=== PATIENT | female | born 1965 | race Caucasian/White ===

== ENCOUNTER → 2018-10-19 14:22 | Outpatient (CLI) | payer OTHER, SELFPAY ==
[2018-10-19 15:33] LABS: Add Manual Diff / Slide Review NO; Basophils Absolute Auto 100 /uL (0-100); Basophils Percent Auto 0.6 % (0-2); Eosinophils Absolute Auto 200 /uL (0-450); Eosinophils Percent Auto 2.5 % (2-4); Hematocrit 42.3 % (36-46); Hemoglobin 14.3 g/dL (12.0-16.0); Lymphocytes Absolute Auto 3000 /uL (1100-4500); Lymphocytes Percent Auto 33.7 % (25-40); Mean Corpuscular HGB Conc 33.8 % (30-36); Mean Corpuscular Hemoglobin 27.9 PG (26-34); Mean Corpuscular Volume 82.4 fL (80-100); Monocytes Absolute Auto 500 /uL (0-900); Monocytes Percent Auto 5.3 % (3-14); Neutrophils Absolute Auto 5200 /uL (1500-7000); Neutrophils Percent Auto 57.9 % (50-75); Platelet Count 299 X10^3/uL (150-400); Red Blood Cell Count 5.13 X10^6/uL (4.0-5.2); Red Cell Distribution Width 13.3 % (11.6-14.8)
[2018-10-19 15:41] LABS: Hemoglobin A1C% w Est Avg Glu 9.9 % (4.0-6.0)
[2018-10-19 15:45] LABS: Alanine Aminotransferase 22 IU/L (9-52); Albumin 4.3 g/dL (3.5-5.0); Albumin Globulin Ratio 1.5 (1.0-2.8); Alkaline Phosphatase 81 U/L (38-126); Aspartate Aminotransferase 18 IU/L (14-36); BUN Creatinine Ratio 17.1 (6-22); Bilirubin Total 0.4 mg/dL (0.2-1.3); Blood Urea Nitrogen 12 mg/dL (7-17); Calcium 9.1 mg/dL (8.4-10.2); Carbon Dioxide 27 mmol/L (22-32); Chloride 101 mmol/L (98-107); Estimated Glomerular Filt Rate > 60.0 mL/min (>60); Globulin 2.9 g/dL (1.7-4.1); Glucose 222 mg/dL (70-100); HEMOLYSIS < 15 (0-50); Potassium 3.7 mmol/L (3.4-5.1); Sodium 138 mmol/L (137-145); Total Protein 7.2 g/dL (6.3-8.2)
== END ==
PROVIDERS: PCP Internal Medicine; Visit Provider Physician Assistant
DX: Z01.818 Encounter for other preprocedural examination (principal); R73.9 Hyperglycemia, unspecified
CPT/HCPCS: 36415; 80053; 83036; 85025; 93005

== ENCOUNTER 2018-11-06 11:01 | Inpatient (IN) | payer OTHER, SELFPAY ==
[2018-10-26 13:56] VITALS: BMI 41.7
[2018-11-06] VITALS (15 sets, daily range): BP systolic 124–172; BP diastolic 66–92; PULSE 69–88; RESP 13–18; TEMP 35.8–36.7; O2SAT 93–98; BMI 41.7
--- NOTE | 2018-11-06 | DI.RAD.S_ITS ---
PROCEDURE: XR CERVICAL SPINE 2V OR 3V INDICATIONS: ACDF C4-5 C5-6 TECHNIQUE: 2 intraoperative fluoroscopic view(s) of the cervical spine were acquired. COMPARISON: None. FINDINGS: Endotracheal tube is in place. Disc spacer hardware is present at C4-5 and C5-6. No unexpected fractures. Bony alignment is grossly normal. IMPRESSION: Intraoperative fluoroscopy for anterior cervical disc spacer placement. Dictated by: She Otoole M.D. on 11/06/2018 at 16:07 Approved by: She Otoole M.D. on 11/06/2018 at 16:08
[2018-11-06] MEDS: LACTATED RINGERS 1,000 ML 42 ML IV ×2 (12:40→16:11)
--- NOTE | 2018-11-06 13:06 | PM.PREOP ---
Pre-operative Note Interval Note History & Physical reviewed/Exam performed by Physician: Yes Changes to H&P: No
--- NOTE | 2018-11-06 13:47 | PM.OP.1 ---
Operative Date/Time/Diagnoses Date of procedure: 11/06/18 Time of procedure: 15:24 Pre-op diagnosis: Cervical stenosis with myelopathy Post-op diagnosis: same Procedure & Clinicians Procedure: C4-5, C5-6 anterior cervical diskectomy and fusion with cages Iliac crest bone graft aspirate Use of microscope Same procedure as scheduled: Yes Indications: [age] year old female with intractable pain from myelopathy from stenosis. They had failed conservative management and requested operative intervention. Risks and benefits of surgery were discussed and appropriate consents were obtained. Surgeon: Jason Benson Expansion Joint Finisher: Cheyenne Merino Anesthesia Type: General Operative Notes Findings: None Closure Type: primary Specimen(s): none sent Prosthetic devices, grafts, tissues, transplants, or devices: Kash SORAYA-C Estimated Blood Loss (mL): 5 Blood products transfused: none Procedure in detail: Patient was brought to the operating room and intubated on the table. A time-out was performed. Preoperative antibiotics were given. The neck was prepped and draped in the standard sterile fashion. Using a skin fold, we made a 3 cm oblique incision on the left side. We used Bovie to go through the platysma and then did a standard anterolateral blunt dissection down to the precervical fascia. Fascia was nicked and elevated up. A marker was placed and x-ray was taken for localization. We then subperiosteally elevated up the longus colli muscles. Self-retaining retractors were placed. Magazine pins were placed. We then brought in the microscope. A scalpel used to perform an annulotomy. We then used a combination of pituitaries and curettes and Kerrison to perform a complete anterior diskectomy at C4-5. We used the bur to take down the posterior osteophytes. We took down the PLL and used Kerrison to remove any posterior disc material and osteophytes. At the end we could from the nerve hook cephalad caudally and out the foramen and everything was opened. A small stab incision was made over the left anterior iliac crest. A Jamshidi needle was advanced down the pedicle and 2 mL of bone marrow was aspirated. We then used the trials. We then packed a 6mm anatomic SORAYA-C cage with Osteocell bone graft and the iliac crest harvest. The cage was placed under fluoroscopic guidance. We then placed our two locking plates and took x-rays. We then moved our retractors down to C5-6. Again, complete diskectomy was performed with scalpel, pituitaries, curets, Kerrisons. We took down the PLL and removed the posterior osteophytes. The nerve hook was swept cephalad caudally and out the neural foramen to make sure everything was open. We then trialed and placed another 7mm anatomic SORAYA-C cage packed with bone graft. We placed our 2 locking plates through the cage. The self-retaining retractors and Magazine pins were removed and final x-rays taken. The wound was irrigated. There was no bleeding. The carotid was beating nicely. The platysma was closed. The superficial was closed. The skin was closed. A sterile dressing was placed. They were then extubated and brought to recovery room with no complications. Complications: none Condition: stable Disposition: PACU Plan for aftercare: Overnight admission. Up with physical therapy.
[2018-11-06] MEDS: CEFAZOLIN 2 GM/100 ML FROZ.PIGGY IV ×2 (14:03→21:50)
--- NOTE | 2018-11-06 14:33 | SUR.OPER ---
Supine on padded OR bed, head on pillow, towel roll between shoulder blades, bilateral arms padded and tucked at side, legs uncrossed, safety belt at thigh, tape over blanket over lower legs .
[2018-11-06] MEDS: BUPIVACAINE 0.25% W/ EPI 30 ML VIAL 60 ML INJ (14:50)
[2018-11-06] MEDS: THROMBIN (BOVINE) 5,000 UNIT VIAL 5000 UNIT TOP (14:50)
[2018-11-06] MEDS: SODIUM CHLORIDE 0.9% 1,000 ML, GENTAMICIN 80 MG IRR (14:53)
[2018-11-06] MEDS: fentaNYL 100 MCG/2 ML INJ 50 MCG IV (16:09)
[2018-11-06] MEDS: ONDANSETRON 4 MG/2 ML INJ IV ×2 (17:17→20:58)
--- NOTE | 2018-11-06 17:35 | SUR.PHASEI ---
Pt transferred to room 225 via bed with all belongings. Last vital signs stable. Report given to ROGER Perez prior to transfer. Pt c/o nausea just before being transferred; 4 mg IV zofran given with pt reporting some improvement in nausea. ROGER Perez at bedside upon arrival to [id number]; assessed pt and pt's dressings together. Ana to assume care of pt at this time.
[2018-11-06] MEDS: LACTATED RINGERS 1,000 ML 125 ML IV (17:57)
[2018-11-06] MEDS: FLUCONAZOLE 200 MG/100 ML PIGGYBACK 100 MG IV (18:04)
[2018-11-06] MEDS: METOCLOPRAMIDE 10 MG/2 ML INJ IV (18:05)
[2018-11-06] MEDS: BENZOCAINE/MENTHOL 1 LOZ PKT 1 EACH PO ×2 (18:20→22:37)
[2018-11-06] MEDS: HYDROMORPHONE 1 MG INJ 0.5 MG IV (18:27)
--- NOTE | 2018-11-06 18:32 | PC.NURSE ---
Addendum entered by Ana Mccauley R.N. 11/06/18 23:08: 250 cc's emesis this evening shift. Reglan, zofran and po vistaril given. Encouraged slow sips/chips only. Up to commode x 2 to void. Original Note: Addendum entered by Ana Mccauley R.N. 11/06/18 20:19: Up to bedside commode to void with one assist. Offered pt oral intake and pt declines. States does not feeling like eating. Oral fluids are available at bedside. Original Note: Addendum entered by Ana Mccauley R.N. 11/06/18 19:21: Pt medicate with throat lozenge for c/o sore throat. Reports nausea improved. C/o incisional pain to neck 03/06. Administered iv dilaudid. Currently resting quietly in bed with head of bed elevated. Ice to site. Original Note: Pt to room 225 from PACU drowsy, but rousable. Diaphoretic and c/o nausea. Has aromatherapy packet present per PACU and was given cool washcloth and encouraged slow, deep breathing. Nausea resolves and reglan administered as pt's bowel tones are absent. Soft collar in place. Graft site to left lower abdomen with pinpoint drainage and gauze/tegaderm to anterior neck dry and intact. Pt able to move all extremities independently. BL calf scd's in place. Pt's daughter is present, attentive and involved in pt's care.
[2018-11-06] MEDS: DOCUSATE 100 MG CAPSULE PO (20:43)
[2018-11-06] MEDS: SENNOSIDES 8.6 MG TABLET 17.2 MG PO (20:44)
[2018-11-06] MEDS: GABAPENTIN 400 MG CAPSULE PO (20:44)
[2018-11-06] MEDS: NYSTATIN POWDER 30 GM 1 APPLIC TOP (20:49)
[2018-11-06] MEDS: INSULIN NPH 100 UNIT/ML VIAL 38 UNIT SUBCUT (20:53)
[2018-11-06] MEDS: hydrOXYzine pamoate 25 MG CAPSULE PO (22:36)
[2018-11-07] VITALS: BP 143/64; PULSE 89; RESP 18; TEMP 35.7; O2SAT 98
[2018-11-07] MEDS: HYDROMORPHONE 1 MG INJ 0.5 MG IV (02:03)
[2018-11-07] MEDS: METOCLOPRAMIDE 10 MG/2 ML INJ IV (02:08)
[2018-11-07] MEDS: BENZOCAINE/MENTHOL 1 LOZ PKT 1 EACH PO (02:08)
[2018-11-07] MEDS: LACTATED RINGERS 1,000 ML 125 ML IV (02:20)
[2018-11-07 03:58] VITALS: BP 139/62; PULSE 96; RESP 18; TEMP 36.2; O2SAT 95
[2018-11-07] MEDS: CEFAZOLIN 2 GM/100 ML FROZ.PIGGY IV (05:37)
--- NOTE | 2018-11-07 06:32 | PC.NURSE ---
NOC Shift: POD 1 anterior cervical fusion C4-5, C5-6. Pt. AAOx3, neurologically intact. States she continues to have tingling, numbness in left hand, fingertips however feels it feels less since surgery. Had post op difficulty w/ nausea and vomiting. Has had no N/V through NOC shift. Was given Diluadid IV once for incisional pain along w/Reglan for nausea prevention. Pt states she cannot take Hydrocodone gives her severe headaches, nausea. Needs to be addressed w/surgeon this AM. Anterior cervical dsg CDI. Soft collar removed while in bed for pt. comfort. Using ice pack to surgical site for pain. Home CPAP at bedside, however w/the nausea, vomiting pt not using tonight remains on 2L NC cont. oximetry stable. VSS. OOB to commode prn. IVF's left on this AM because pt. isn't taking in enough po fluids.
--- NOTE | 2018-11-07 07:56 | PM.PNPO.1 ---
Subjective Date Patient Seen: 11/07/18 Time Patient Seen: 07:56 Interval history: She was very nauseated yesterday but now that the nausea has passed she is doing much better. Arms are tingling but overall feel much better. She did not take any [place] as she remembers being nauseated and vomiting with Vicodin in the past and requests tramadol. Exam Vital Signs (past 8 hours): - 11/07/18 00:00 11/07/18 03:58 Temperature 96.2 F L 97.2 F L Pulse Rate 89 96 H Respiratory Rate 18 18 Blood Pressure 143/64 H 139/62 Pulse Oximetry 98 95 Oxygen Delivery Method Nasal Cannula,CPAP Oxygen Flow Rate 1 Const Orientation: alert and oriented x3 Back/Spine/Pelvis Other: CDI. 5/5 motor both upper extremities except for 4/5 bilateral drupal php developer. Assessment & Plan Post-op Postoperative Procedures Operation Date: 11/06/18 13:15 Actual Procedures Side Surgeon p C4-5,C5-6 ACDF w/fusion & bone graft Jason Benson MD she is doing well. Will change her over to tramadol. Plan for discharge after therapy this morning. Quality VTE Deep Vein Thrombosis/Pulmonary Embolism Present on Admission: No
[2018-11-07 08:00] VITALS: BP 139/69; PULSE 90; RESP 18; TEMP 36.6; O2SAT 92
[2018-11-07] MEDS: NYSTATIN POWDER 30 GM 1 APPLIC TOP (08:26)
[2018-11-07] MEDS: TRAMADOL 50 MG TABLET PO (08:26)
[2018-11-07] MEDS: CELECOXIB 200 MG CAPSULE PO (08:27)
[2018-11-07] MEDS: INSULIN NPH 100 UNIT/ML VIAL 38 UNIT SUBCUT (08:27)
[2018-11-07] MEDS: GABAPENTIN 400 MG CAPSULE PO (08:27)
[2018-11-07] MEDS: DOCUSATE 100 MG CAPSULE PO (08:27)
[2018-11-07] MEDS: PANTOPRAZOLE 20 MG TABLET PO (08:28)
[2018-11-07] MEDS: INSULIN ASPART 100 UNIT/ML INSULN PEN SUBCUT ×2 (08:36→12:29)
--- NOTE | 2018-11-07 09:20 | PT.IIE ---
Current Diagnoses Spinal stenosis, cervical region (11/06/18) Surgery Performed Operation Date: 11/06/18 13:15 Actual Procedures p C4-5,C5-6 ACDF w/fusion & bone graft - Jason Benson MD Surgical History (Last Updated 10/26/18 @ 14:18 by Olga Joyner, RN) History of colonoscopy (Acute) Hx of tonsillectomy (Acute) Medical History (Last Updated 10/26/18 @ 14:23 by Olga Joyner RN) Back pain (Acute) Bronchitis (Acute) Eczema (Acute) Epilepsy (Acute) Former smoker (Acute) GERD (gastroesophageal reflux disease) (Acute) H/O: hysterectomy (Acute ~2012) Hearing impaired (Acute) IBS (irritable bowel syndrome) (Acute) Neck pain (Acute) Numbness and tingling (Acute) CHRISTI on CPAP (Acute) Rash (Acute) Physical Therapy Inpatient Evaluation/Re-Eval M1 PT/OT-IP Prior Functional Status Start: 11/07/18 09:45 Freq: NEEDED Status: Active Protocol: Document 11/07/18 09:20 [facility] (Rec: 11/07/18 09:58 [facility] [id number]) Medical Review Prior Functional Status Medical History Reviewed Yes Mobility and Gait mod. indep. with occasional use of SPC Activities of Daily Living and IADL's indep. ADLs Social History Household Members children Living Arrangements Apartment/Condo Number of Floors (Floors) One Floor Number of Stairs To Enter/Railing? 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 She underwent an anterior cervical fusion C4-5, C5-6 on 11/06/18. M2 PT-IP Current Condition Start: 11/07/18 09:45 Freq: NEEDED Status: Active Protocol: Document 11/07/18 09:20 [facility] (Rec: 11/07/18 09:58 [facility] [id number]) Physical Therapy Current Condition Current Condition Evaluation Date 11/07/18 Treatment Diagnosis C4-5, C5-6 fusion 11/06/18, impaired mobility Precautions Cervical Spine Precautions Soft Collar for Comfort Log Roll M3 PT-IP Subjective Start: 11/07/18 09:45 Freq: NEEDED Status: Active Protocol: Document 11/07/18 09:20 [facility] (Rec: 11/07/18 09:58 [facility] [id number]) Subjective Physical Therapy Visit Type Type Initial Evaluation Visit Start Time 09:20 Visit Stop Time 09:40 Total Visit Minutes 20 Number of ATMOSPHERIC PHYSICIST Visits 0 Physical Therapy Visit Comments Patient Comments Pt states she is doing a lot better this morning. Patient Goals to go home today. Therapy Pain Assessment Location Neck Intensity 3 Scale Used Numeric (1 - 10) M4 PT-IP Mobility and Gait Start: 11/07/18 09:45 Freq: NEEDED Status: Active Protocol: Document 11/07/18 09:20 [facility] (Rec: 11/07/18 09:58 [facility] [id number]) PT-Transfer Assessment Sit to and From Stand Sit to and from Stand Independent Equipment Transfer Assistive Device None Transfers Transfer Destination Chair Wheelchair Transfer Ability Level of Assist Independent Gait Assessment Gait Gait Assistance Required: Independent Distance (Feet) 300 Assistive Devices Assistive Device Straight Cane Gait Deviations General Gait Pattern Decreased Feet Clearance Factors Limiting Gait Function Factors Limiting Gait Function Decreased Activity Tolerance Stair Climbing Assessment Evaluation Level of Assist On Stairs Independent Devices Stair Climbing Assistive Devices Left Railing Right Railing Technique/Endurance Stair Climbing Direction Ascend and Descend Stair Climbing Technique Step to Step Number of Steps Climbed 3 Query Text: Stair Climbing Set # Repetitions (reps) 3 PT-Balance Assessment Sitting Balance and Reactions Static Sitting Balance Ability Good Dynamic Sitting Balance Ability Good Standing Balance and Reactions Static Standing Balance Ability Good Dynamic Standing Balance Ability Good Device Used SPC M5 PT-IP Objective Assessments Start: 11/07/18 09:45 Freq: NEEDED Status: Active Protocol: Document 11/07/18 09:20 [facility] (Rec: 11/07/18 09:58 [facility] [id number]) Orientation Orientation/Cognition Level of Alertness Alert Gross Range of Motion Lower Extremity ROM Assessment Within Functional Limits Strength Lower Extremity Strength Assessment Within Functional Limits Coordination Assessment Gross Coordination Gross Coordination WNL Sensation Assessment Comments Sensation Comments pt admits to bilateral UE numbness/tingling Muscle Tone Muscle Tone WNL Yes M6 PT-IP Treatment Start: 11/07/18 09:45 Freq: NEEDED Status: Active Protocol: Document 11/07/18 09:20 [facility] (Rec: 11/07/18 09:58 [facility] [id number]) Physical Therapy Treatment Education Education Provided Precautions Safety M7 PT-IP Assessment and Plan Start: 11/07/18 09:45 Freq: NEEDED Status: Active Protocol: Document 11/07/18 09:20 [facility] (Rec: 11/07/18 09:58 [facility] [id number]) PT Summary Assessment and Plan Potential Rehabilitation Potential Good Status of Condition at Evaluation Stable Summary Impairments Pain ROM Activity Tolerance Progress Towards Goals Safe For Discharge Assessment Summary POD #1. Pt able to manage stairs safely with use of B rails, and able to ambulate 300 ft with use of a SPC independently. Pt with no further acute PT needs at this time. She is safe to return home when medically stable. Frequency of Treatment Frequency Of Treatment Discharge Recommendations To Nursing Amount of Assist Needed Standby Assistance Discharge Recommendations PT Discharge Recommendations Home with Assistance
--- NOTE | 2018-11-07 10:29 | CM.DANOTE ---
DCP: Case received, EMR reviewed and met with patient. Introduced self and role. DCP template completed with information currently available. Patient is a 53 year old female who admitted yesterday morning to the care of the surgical team. PCP: Dr. Guzman. Payer: confirmed: [facility]. Patient came to hospital for surgical procedure. She had C4-5, C5-6 Anterior Cervical Diskectomy. Patient has had history of intractable pain secondary to stenosis. Met with patient in her room. Daughter, Janeen, was sleeping in the room. Patient stated that she uses a cane at home, and lives with her daughtger. She stated, she has good support at home. P: Patient may be discharged home today, but will work with physical therapy first. Nichole Espino RN/Nursing Care Attendant
--- NOTE | 2018-11-07 11:01 | OT.IP.EVAL ---
Current Diagnoses Spinal stenosis, cervical region (11/06/18) Surgery Performed Operation Date: 11/06/18 13:15 Actual Procedures p C4-5,C5-6 ACDF w/fusion & bone graft - Jason Benson MD Past Medical History (Last Updated 10/26/18 @ 14:23 by Olga Joyner, RN) Back pain (Acute) Bronchitis (Acute) Eczema (Acute) Epilepsy (Acute) Former smoker (Acute) GERD (gastroesophageal reflux disease) (Acute) H/O: hysterectomy (Acute ~2011) Hearing impaired (Acute) IBS (irritable bowel syndrome) (Acute) Neck pain (Acute) Numbness and tingling (Acute) CHRISTI on CPAP (Acute) Rash (Acute) Surgical History (Last Updated 10/26/18 @ 14:18 by Olga Joyner RN) History of colonoscopy (Acute) Hx of tonsillectomy (Acute) Occupational Therapy Inpatient Evaluation/Re-Eval M1 PT/OT-IP Prior Functional Status Start: 11/07/18 09:45 Freq: NEEDED Status: Active Protocol: Document 11/07/18 09:20 [facility] (Rec: 11/07/18 09:58 [facility] [id number]) Medical Review Prior Functional Status Medical History Reviewed Yes Mobility and Gait mod. indep. with occasional use of SPC Activities of Daily Living and IADL's indep. ADLs Social History Household Members children Living Arrangements Apartment/Condo Number of Floors (Floors) One Floor Number of Stairs To Enter/Railing? 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 She underwent an anterior cervical fusion C4-5, C5-6 on 11/06/18. M1 PT/OT-IP Prior Functional Status Start: 11/07/18 10:48 Freq: NEEDED Status: Active Protocol: Document 11/07/18 10:48 [facility] (Rec: 11/07/18 11:01 [facility] [id number]) Medical Review Prior Functional Status Medical History Reviewed Yes Diet/Fluid Consistency Regular Thin Liquids Communication Independent Mobility and Gait mod. indep. with occasional use of SPC Activities of Daily Living and IADL's indep. ADLs Social History Household Members children Living Arrangements Apartment/Condo Number of Floors (Floors) One Floor Number of Stairs To Enter/Railing? 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 She underwent an anterior cervical fusion C4-5, C5-6 on 11/06/18. M2 OT-IP Current Condition Start: 11/07/18 10:48 Freq: Status: Active Protocol: Document 11/07/18 10:48 [facility] (Rec: 11/07/18 11:01 [facility] [id number]) Occupational Therapy Current Condition Current Condition Evaluation Date 11/07/18 Treatment Diagnosis cervical stenosis Diagnosis Onset Date 11/06/18 Post Operative Precautions Cervical Spine Precautions Soft Collar for Comfort Soft Collar at all Times No Heavy Lifting Log Roll M3 OT- IP Subjective and Pain Start: 11/07/18 10:48 Freq: Status: Active Protocol: Document 11/07/18 10:48 [facility] (Rec: 11/07/18 11:01 [facility] [id number]) OT- Subjective Occupational Therapy Visit Type Type Initial Evaluation Visit Start Time 08:45 Visit Stop Time 09:28 Total Visit Minutes 43 Occupational Therapy Visit Comments Patient Comments Pt wanting to shower prior to going home. OT Pain Assessment Pain When Pain Assessed At Rest Pain Present Pain Present Denied Pain M4 OT- IP ADL's Start: 11/07/18 10:48 Freq: Status: Active Protocol: Document 11/07/18 10:48 [facility] (Rec: 11/07/18 11:01 [facility] [id number]) OT [id number] Comments OT Self-Feeding Comments Vc to chew food longer and alternate between solids and liquids. In addition to try to eat softer food initially. OT ADL-Grooming General Evaluation Grooming Ability Standby Assistance Comments OT Grooming Comments Initial VC to bryanna/doff soft collar and afterwards ADA with all grooming needs. OT ADL-Dressing General Eval Upper Body Dressing Ability Independent Lower Body Dressing Ability Moderate Assistance Comments OT Dressing Comments VC to sit sit down to bryanna brief and shorts and needing assist for socks. Pt issued LB AED. OT ADL-Toileting General Evaluation Toileting Ability Independent OT ADL-Bathing Bathing Type Bathing Type Shower General Evaluation Bathing Ability Minimal Assistance Areas Needing Assistance Wash/Dry Back Comments OT Bathing Comments Pt able to stand for showering and use of grab bats occasionally. Pt has a tub/ shower and to have assist to step into tub . Py may benefit from shower chair and especially HHSP. Went over information with pt for soft collar management and ADl needs. M5 OT- IP IADL's Start: 11/07/18 10:48 Freq: Status: Active Protocol: Document 11/07/18 10:48 [facility] (Rec: 11/07/18 11:01 [facility] [id number]) OT-Instrumental Activities of Daily Living Home Safety Awareness Awareness of Need for Assistance at Home Good Awareness Home Safety Comments Pt's daughter to assist with all IADL needs and ADL's as needed. M6 OT- IP Functional Cognition Start: 11/07/18 10:48 Freq: Status: Active Protocol: Document 11/07/18 10:48 [facility] (Rec: 11/07/18 11:01 [facility] [id number]) Cognitive Factors Limiting Selfcare Function Cognitive Ability Level of Alertness Alert Patient Orientation Name Age Birthday Month Date Year Day of Week Place Situation Attention Span Ability Capable of Focused Attention Capable of Sustained Attention Ability to Follow Commands Able to Follow Multi-Step Commands Memory Description No Deficits Noted Safety Awareness Underestimates Need for Assistance Problem Solving Ability No deficits Noted Cognitive Comments Cognitive Assessment Comments Mainly vc to slow down and be careful not to twist her neck while moving and especially while trying to reach for objects. OT- Vision and Hearing OT- Hearing Assessment OT- Hearing Assessment Use of Hearing Aids OT- Vision Assessment Visual Acuity Glasses All The Time M7 OT- IP Mobility and Balance Start: 11/07/18 10:48 Freq: Status: Active Protocol: Document 11/07/18 10:48 [facility] (Rec: 11/07/18 11:01 [facility] [id number]) OT- Bed Mobility Assessment Rolling Type of Rolling Log Rolling Supine to Sit Supine to Sit Assist Standby Assistance Scooting Scooting to Edge of Bed Standby Assistance OT-Transfer Assessment Sit to and From Stand Sit to and from Stand Independent Transfers Transfer Ability Independent Standby Assistance Technique Transfer Destination Chair Shower Stall Toilet Comments Mobility Comments Pt has a hi bed and use of step stool with rail to get into bed at home, information passed to PT. Pt mainly independent for level surfaces and SBA when stepping into the shower, pt will need CGA/ KAREN to step over tub at home. OT- Balance Assessment Sitting Balance and Reactions Static Sitting Balance Ability Normal Dynamic Sitting Balance Ability Normal Standing Balance and Reactions Static Standing Balance Ability Normal Dynamic Standing Balance Ability Good M8 OT- IP Objective Assessments Start: 11/07/18 10:48 Freq: Status: Active Protocol: Document 11/07/18 10:48 [facility] (Rec: 11/07/18 11:01 [facility] [id number]) OT Gross Range of Motion Upper Extremity Range of Motion Assessment Within Functional Limits OT Strength Upper Extremity Strength Assessment Within Functional Limits M9 OT- IP Assessment and Plan Start: 11/07/18 10:48 Freq: Status: Active Protocol: Document 11/07/18 10:48 [facility] (Rec: 11/07/18 11:01 [facility] [id number]) OT Summary Assessment and Plan Potential Rehabilitation Potential Excellent Analytic Complexity at Evaluation Low Summary OT Impairments Functional Cognition Functional Mobility Progress Towards Goals Progressing Toward Goals Assessment Summary Pt low complexity and doing well, main barrier is 20 steps at home and needs vc to slow down. Pt's daughter lives with her and to assist for all needs. Pt to go home today. Goals Patient/Caregiver Education Goal Demonstrate Post-Op Precautions Caregiver Independent Assisting Patient Days to Meet Goals 1 Frequency of Treatment Frequency Of Treatment Once a Day Treatment Plan OT Treatment Plan Patient/Family Education Discharge Planning Discharge Recommendations OT Discharge Recommendations Home with Assistance Home Equipment Needs HHSP, shower chair
== END 2018-11-07 13:00 | disposition home or self-care (01) | DRG 472 ==
PROVIDERS: Admitting Provider Orthopaedic Surgery; PCP Internal Medicine; Visit Provider Orthopaedic Surgery
PROC: 0RG20A0 Fusion of 2 or more Cervical Vertebral Joints with Interbody Fusion Device, Anterior Approach, Anterior Column, Open Approach (ICD-10-PCS; principal; 2018-11-06 13:15)
DX: M48.02 Spinal stenosis, cervical region (principal); Z68.41 Body mass index [BMI] 40.0-44.9, adult; G99.2 Myelopathy in diseases classified elsewhere; G47.33 Obstructive sleep apnea (adult) (pediatric); E10.9 Type 1 diabetes mellitus without complications; E66.01 Morbid (severe) obesity due to excess calories; Z87.891 Personal history of nicotine dependence; Z79.4 Long term (current) use of insulin
CPT/HCPCS: 72040; 76000; 82962; 97161; 97165; 97535; C1776; J0330; J0690; J1100; J1170; J1450; J2405; J2704; J2765; J3010

== ENCOUNTER 2019-06-27 13:49 | Emergency (ER) | payer OTHER, SELFPAY ==
[2018-11-06 17:46] VITALS: BMI 41.7
[2019-06-27 13:53] VITALS: BP 155/68; PULSE 80; RESP 20; TEMP 36.7; O2SAT 97
--- NOTE | 2019-06-27 14:38 | ED.NAVMDI ---
HPI - Nausea/Vomiting/Diarrhea <ANTHONY Light - Last Filed: 06/27/19 19:39> General Chief complaint: Nausea/Vomiting/Diarrhea Stated complaint: Heartburn,headache,nausea Time Seen by Provider: 06/27/19 14:19 Source: patient Mode of arrival: Ambulatory Limitations: no limitations History of Present Illness HPI Narrative: The patient is a 54-year-old female nonsmoker with history of type 2 diabetes and GERD who presents with a chief complaint of epigastric pain and nausea. She states she generally does not feel well. Of note the patient has run out of insulin test strips and has not been checking her blood sugars. She states she feels like she has really bad heartburn, got concerned today when she started having arm pain and nausea. She takes daily omeprazole, but has not taken anything to feel better. She denies any lightheadedness, dizziness, shortness of breath, palpitations or swelling of her extremities. She denies any fevers muscle aches or chills. She does not remember the last time she checked her blood sugar. Related Data Home Medications Medication Instructions Recorded Confirmed Humulin N NPH U-100 Insulin 38 unit SUBCUT BID 10/26/18 11/06/18 acetaminophen [Acetaminophen Extra 1,000 mg PO Q6H PRN 10/26/18 11/06/18 Strength] gabapentin 400 mg PO TID 10/26/18 11/06/18 nystatin 1 applic TOPICAL BID 10/26/18 10/26/18 omeprazole 20 mg PO DAILY 10/26/18 11/06/18 Previous Rx's Medication Instructions Recorded celecoxib [Celebrex] 200 mg PO BID PRN #60 cap 11/07/18 docusate sodium 100 mg PO BID PRN #30 cap 11/07/18 hydroxyzine pamoate 25 mg PO Q4HR PRN #20 cap 11/07/18 tramadol 50 mg PO Q4HR PRN #30 tab 11/07/18 ondansetron 4 mg PO Q6H PRN #20 tab 06/27/19 sucralfate [Carafate] 10 ml PO QACHS 10 Days #400 ml 06/27/19 Allergies Allergy/AdvReac Type Severity Reaction Status Date / Time No Known Drug Allergies Allergy Verified 11/06/18 12:24 Review of Systems <ANTHONY Light - Last Filed: 06/27/19 19:39> Review of Systems Narrative: GENERAL: Denies chills, fatigue, malaise, fever, sweats. HEENT: Denies sinus pain, ear pain, sore throat, difficulty swallowing, dizziness. RESPIRATORY: Denies dyspnea, cough, wheezing, hemoptysis, sputum. CARDIOVASCULAR: See HPI GASTROINTESTINAL: See HPI : Denies dysuria, frequency, incontinence, hematuria, urinary retention. MUSCULOSKELETAL: denies weakness, joint pain, or bony pain SKIN: Denies rash, skin lesions, or other NEUROLOGIC: Denies weakness, headache, numbness, change in speech, confusion, seizures, incoordination. PSYCHIATRIC: No concerning psychosocial issues. 12 point review of systems is negative except for those stated above Patient History <ANTHONY Light - Last Filed: 06/27/19 19:39> Medical History (Updated 06/27/19 @ 19:33 by ANTHONY Light) Back pain (Acute) Bronchitis (Acute) Eczema (Acute) Epilepsy (Acute) Former smoker (Acute) GERD (gastroesophageal reflux disease) (Acute) Hearing impaired (Acute) IBS (irritable bowel syndrome) (Acute) Neck pain (Acute) Numbness and tingling (Acute) CHRISTI on CPAP (Acute) Rash (Acute) Surgical History (Updated 10/26/18 @ 14:18 by Olga Joyner RN) H/O: hysterectomy (Acute ~2011) History of colonoscopy (Acute) Hx of tonsillectomy (Acute) Social History household members: children Smoking Status: Former smoker alcohol intake: current alcohol intake frequency: holidays/special occasions only Substance Use Type: does not use Exam <ANTHONY Light - Last Filed: 06/27/19 19:39> Narrative Exam Narrative: GENERAL: This is a well-nourished, well-developed patient, no acute distress HEAD: Atraumatic. Normocephalic. No temporal or scalp tenderness. EYES: Pupils equal round and reactive. Extraocular motions intact. No scleral icterus. No injection or drainage. ENT: Nose without bleeding, purulent drainage or septal hematoma. Throat without erythema, tonsillar hypertrophy or exudate. Uvula midline. Airway patent. NECK: Trachea midline. No JVD or lymphadenopathy. Supple, nontender, no meningeal signs. CARDIOVASCULAR: Regular rate and rhythm RESPIRATORY: Clear to auscultation. Breath sounds equal bilaterally. No wheezes, rales, or rhonchi. No cough. No increased respiratory effort. No accessory muscle use. GASTROINTESTINAL: Abdomen soft, non-tender, nondistended. No hepato-splenomegaly, or palpable masses. No guarding. Negative Newell sign. No pain over McBurney's point. EXTREMITIES: No clubbing, cyanosis, or edema. No joint tenderness, effusion, or edema noted. BACK: Nontender without deformity or crepitance. No flank tenderness. NEURO: AOx3. SKIN: No rash or erythema visible skin Initial Vital Signs Initial Vital Signs: Vital Signs Temperature 98.1 F 06/27/19 13:53 Pulse Rate 80 06/27/19 13:53 Respiratory Rate 20 06/27/19 13:53 Blood Pressure 155/68 H 06/27/19 13:53 Pulse Oximetry 97 06/27/19 13:53 <Susana Jordan DO - Last Filed: 07/05/19 09:06> Initial Vital Signs Initial Vital Signs: Vital Signs Temperature 98.1 F 06/27/19 13:53 Pulse Rate 80 06/27/19 13:53 Respiratory Rate 20 06/27/19 13:53 Blood Pressure 155/68 H 06/27/19 13:53 Pulse Oximetry 97 06/27/19 13:53 Scores <ANTHONY Light - Last Filed: 06/27/19 19:39> GCS [place] coma scale eye opening: Spontaneous [place] coma scale verbal response: Orientated [place] coma scale motor response: Obey commands [place] coma scale total score: 15 HEART Score Heart Score history: Slightly Suspicious Heart Score EKG: Normal Heart Score Age: 45-64 years old Heart Score risk factors: 1-2 risk factors Heart Score troponin: < or = to normal limit Heart Score Total: 2 Course <ANTHONY Light - Last Filed: 06/27/19 19:39> Orders Ordered: Discontinued Medications Al Hydrox/Mg Hydrox/Simethicone 20 ml/ Lidocaine HCl 15 ml 0 ml PO NOW ONE Stop: 06/27/19 17:08 Last Admin: 06/27/19 17:25 Dose: 35 ml Documented by: SALBADOR Sodium Chloride (Normal Saline 0.9%) 1,000 mls @ 1,000 mls/hr IV BOLUS ONE Stop: 06/27/19 15:32 Last Infusion: 06/27/19 16:20 Dose: 0 mls/hr Documented by: Admin: 06/27/19 15:06 Dose: 1,000 mls/hr Documented by: SALBADOR Ketorolac Tromethamine (Toradol) 30 mg IV NOW ONE Stop: 06/27/19 17:04 Last Admin: 06/27/19 17:26 Dose: 30 mg Documented by: SALBADOR Ondansetron HCl (Zofran) 4 mg IV NOW ONE Stop: 06/27/19 14:33 Last Admin: 06/27/19 15:06 Dose: 4 mg Documented by: SALBADOR Ondansetron HCl (Zofran Odt Prepack) 1 bottle MISC SEEINSTR ONE Stop: 06/27/19 19:16 Last Admin: 06/27/19 19:41 Dose: 1 bottle Documented by: NOHELIA Pantoprazole Sodium (Protonix) 40 mg IV NOW ONE Stop: 06/27/19 14:33 Last Admin: 06/27/19 15:06 Dose: 40 mg Documented by: SALBADOR Sucralfate (Carafate) 1 gm PO NOW ONE Stop: 06/27/19 19:16 Last Admin: 06/27/19 19:40 Dose: 1 gm Documented by: NOHELIA Vital Signs Vital signs: Vital Signs - 8 hr 06/27/19 13:53 06/27/19 16:00 06/27/19 16:13 Temperature 98.1 F Pulse Rate 80 79 77 Respiratory Rate 20 16 Blood Pressure 155/68 H Blood Pressure [Left Arm] 148/63 H Blood Pressure [Right Arm] 148/63 H Pulse Oximetry 97 98 98 06/27/19 17:12 06/27/19 18:00 Temperature Pulse Rate 84 76 Respiratory Rate 16 16 Blood Pressure Blood Pressure [Left Arm] Blood Pressure [Right Arm] 134/59 L 141/67 H Pulse Oximetry 98 100 <Susana Jordan DO - Last Filed: 07/05/19 09:06> Orders Ordered: Discontinued Medications Al Hydrox/Mg Hydrox/Simethicone 20 ml/ Lidocaine HCl 15 ml 0 ml PO NOW ONE Stop: 06/27/19 17:08 Last Admin: 06/27/19 17:25 Dose: 35 ml Documented by: SALBADOR Sodium Chloride (Normal Saline 0.9%) 1,000 mls @ 1,000 mls/hr IV BOLUS ONE Stop: 06/27/19 15:32 Last Infusion: 06/27/19 16:20 Dose: 0 mls/hr Documented by: Admin: 06/27/19 15:06 Dose: 1,000 mls/hr Documented by: SALBADOR Ketorolac Tromethamine (Toradol) 30 mg IV NOW ONE Stop: 06/27/19 17:04 Last Admin: 06/27/19 17:26 Dose: 30 mg Documented by: SALBADOR Ondansetron HCl (Zofran) 4 mg IV NOW ONE Stop: 06/27/19 14:33 Last Admin: 06/27/19 15:06 Dose: 4 mg Documented by: SALBADOR Ondansetron HCl (Zofran Odt Prepack) 1 bottle MIS SEEINSTR ONE Stop: 06/27/19 19:16 Last Admin: 06/27/19 19:41 Dose: 1 bottle Documented by: NOHELIA Pantoprazole Sodium (Protonix) 40 mg IV NOW ONE Stop: 06/27/19 14:33 Last Admin: 06/27/19 15:06 Dose: 40 mg Documented by: SALBADOR Sucralfate (Carafate) 1 gm PO NOW ONE Stop: 06/27/19 19:16 Last Admin: 06/27/19 19:40 Dose: 1 gm Documented by: NOHELIA Vital Signs Vital signs: Vital Signs - 8 hr 06/27/19 13:53 06/27/19 16:00 06/27/19 16:13 Temperature 98.1 F Pulse Rate 80 79 77 Respiratory Rate 20 16 Blood Pressure 155/68 H Blood Pressure [Left Arm] 148/63 H Blood Pressure [Right Arm] 148/63 H Pulse Oximetry 97 98 98 06/27/19 17:12 06/27/19 18:00 Temperature Pulse Rate 84 76 Respiratory Rate 16 16 Blood Pressure Blood Pressure [Left Arm] Blood Pressure [Right Arm] 134/59 L 141/67 H Pulse Oximetry 98 100 MDM - Nausea/Vomiting/Diarrhea <ANTHONY Light - Last Filed: 06/27/19 19:39> Lab Data Result diagrams: 06/27/19 15:10 06/27/19 15:10 Labs: Lab Results 06/27/19 06/27/19 06/27/19 Range/Units 14:55 15:10 15:10 WBC 7.1 (4.5-11.0) X10^3/uL RBC 5.09 (4.0-5.2) X10^6/uL Hgb 14.5 (12.0-16.0) g/dL Hct 42.7 (36-46) % MCV 84.0 (80-100) fL MCH 28.5 (26-34) PG MCHC 33.9 (30-36) % RDW 13.8 (11.6-14.8) % Plt Count 277 (150-400) X10^3/uL Neut % (Auto) 58.2 (50-75) % Lymph % (Auto) 34.0 (25-40) % [place] % (Auto) 5.3 (3-14) % Eos % (Auto) 1.5 L (2-4) % Baso % (Auto) 1.0 (0-2) % Neut # (Auto) 4100 (4543-1821) /uL Lymph # (Auto) 2400 (3329-6161) /uL [place] # (Auto) 400 (0-900) /uL Eos # (Auto) 100 (0-450) /uL Baso # (Auto) 100 (0-100) /uL PT 10.7 (10.1-12.7) SECONDS INR 0.9 (0.9-1.3) APTT 30 (26.4-36.2) SECONDS Sodium (137-145) mmol/L Potassium (3.4-5.1) mmol/L Chloride (98-107) mmol/L Carbon Dioxide (22-32) mmol/L BUN (7-17) mg/dL Creatinine (0.52-1.04) mg/dL Estimated GFR (>60) mL/min BUN/Creatinine Ratio (6-22) Glucose (70-100) mg/dL Calcium (8.4-10.2) mg/dL Total Bilirubin (0.2-1.3) mg/dL AST (14-36) IU/L ALT (<35) IU/L Alkaline Phosphatase (38-126) U/L Total Creatine Kinase (30-135) U/L CK-MB (CK-2) CK-MB (CK-2) Rel Index Troponin I (0.01-0.034) ng/mL B-Natriuretic Peptide (<100) Total Protein (6.3-8.2) g/dL Albumin (3.5-5.0) g/dL Globulin (1.7-4.1) g/dL Albumin/Globulin Ratio (1.0-2.8) Amylase (30-110) U/L Lipase (23-300) U/L Urine RBC None seen (0-5/HPF) Urine WBC 0-1/hpf (0-5/HPF) Ur Squamous Epith Cells 0-1 /hpf (0-5/HPF) Urine Bacteria Occasional (0-1) (None) Ur Culture Indicated? Specimen cultured 06/27/19 06/27/19 06/27/19 Range/Units 15:10 15:10 18:00 WBC (4.5-11.0) X10^3/uL RBC (4.0-5.2) X10^6/uL Hgb (12.0-16.0) g/dL Hct (36-46) % MCV (80-100) fL MCH (26-34) PG MCHC (30-36) % RDW (11.6-14.8) % Plt Count (150-400) X10^3/uL Neut % (Auto) (50-75) % Lymph % (Auto) (25-40) % [place] % (Auto) (3-14) % Eos % (Auto) (2-4) % Baso % (Auto) (0-2) % Neut # (Auto) (3120-0164) /uL Lymph # (Auto) (8308-9512) /uL [place] # (Auto) (0-900) /uL Eos # (Auto) (0-450) /uL Baso # (Auto) (0-100) /uL PT (10.1-12.7) SECONDS INR (0.9-1.3) APTT (26.4-36.2) SECONDS Sodium 143 (137-145) mmol/L Potassium 4.4 (3.4-5.1) mmol/L Chloride 110 H (98-107) mmol/L Carbon Dioxide 28 (22-32) mmol/L BUN 12 (7-17) mg/dL Creatinine 0.70 (0.52-1.04) mg/dL Estimated GFR > 60.0 (>60) mL/min BUN/Creatinine Ratio 17.1 (6-22) Glucose 138 H (70-100) mg/dL Calcium 8.8 (8.4-10.2) mg/dL Total Bilirubin 0.4 (0.2-1.3) mg/dL AST 21 (14-36) IU/L ALT 17 (<35) IU/L Alkaline Phosphatase 72 (38-126) U/L Total Creatine Kinase 75 79 (30-135) U/L CK-MB (CK-2) TNP TNP CK-MB (CK-2) Rel Index TNP TNP Troponin I < 0.012 < 0.012 (0.01-0.034) ng/mL B-Natriuretic Peptide < 100 (<100) Total Protein 6.4 (6.3-8.2) g/dL Albumin 3.9 (3.5-5.0) g/dL Globulin 2.5 (1.7-4.1) g/dL Albumin/Globulin Ratio 1.6 (1.0-2.8) Amylase 66 (30-110) U/L Lipase 57 (23-300) U/L Urine RBC (0-5/HPF) Urine WBC (0-5/HPF) Ur Squamous Epith Cells (0-5/HPF) Urine Bacteria (None) Ur Culture Indicated? Point of Care Testing Glucose POC 158 Urine Dip Bedside Urine Glucose 250 mg/dl Bedside Urine Bilirubin - Negative Bedside Urine Ketone +/- 5 Urine Specific [place] 1.015 Bedside Urine Occult Blood - Negative Bedside Urine pH 6.0 Bedside Urine Protein - Negative Bedside Urine Urobilinogen - Negative Bedside Urine Nitrite - Negative Bedside Urine Leukocytes + 70 Esterase ECG Data Attestation: I personally reviewed and interpreted this ECG as follows: Interpretation: SR ventricular rate 68. P.r. interval 147. QRS duration 92. viewed by Dr Jordan. [facility] Narrative Medical decision making narrative: The patient is a 54-year-old female who presents with a chief complaint of nausea. She states she has a history of GERD, but this is ?worse than usual.She denies any chest pain, shortness of breath, palpitations, lightheadedness or dizziness etc. EKG was done and normal. She has 2 negative troponins 3 hours apart. Overall lab work was benign. Overall exam was benign. She has negative Newell sign. She responded very well in the emergency department to Protonix, Zofran in GI cocktail. I discussed at length with the patient dietary changes, decreasing caffeine, acid etc. Discussed stress control. It is likely that her pain is related to GERD. Discussed at length the importance of following up with primary care provider in the next few days as well as come back to the emergency department for any acute concerns such as chest pain, shortness of breath, concern of heart attack or stroke. Patient has no questions or concerns upon discharge and states understanding of return precautions as well as follow-up care. <Susana Jordan, DO - Last Filed: 07/05/19 09:06> Lab Data Labs: Lab Results 06/27/19 06/27/19 06/27/19 Range/Units 14:55 15:10 15:10 WBC 7.1 (4.5-11.0) X10^3/uL RBC 5.09 (4.0-5.2) X10^6/uL Hgb 14.5 (12.0-16.0) g/dL Hct 42.7 (36-46) % MCV 84.0 (80-100) fL MCH 28.5 (26-34) PG MCHC 33.9 (30-36) % RDW 13.8 (11.6-14.8) % Plt Count 277 (150-400) X10^3/uL Neut % (Auto) 58.2 (50-75) % Lymph % (Auto) 34.0 (25-40) % [place] % (Auto) 5.3 (3-14) % Eos % (Auto) 1.5 L (2-4) % Baso % (Auto) 1.0 (0-2) % Neut # (Auto) 4100 (2437-3243) /uL Lymph # (Auto) 2400 (8240-0727) /uL [place] # (Auto) 400 (0-900) /uL Eos # (Auto) 100 (0-450) /uL Baso # (Auto) 100 (0-100) /uL PT 10.7 (10.1-12.7) SECONDS INR 0.9 (0.9-1.3) APTT 30 (26.4-36.2) SECONDS Sodium (137-145) mmol/L Potassium (3.4-5.1) mmol/L Chloride (98-107) mmol/L Carbon Dioxide (22-32) mmol/L BUN (7-17) mg/dL Creatinine (0.52-1.04) mg/dL Estimated GFR (>60) mL/min BUN/Creatinine Ratio (6-22) Glucose (70-100) mg/dL Calcium (8.4-10.2) mg/dL Total Bilirubin (0.2-1.3) mg/dL AST (14-36) IU/L ALT (<35) IU/L Alkaline Phosphatase (38-126) U/L Total Creatine Kinase (30-135) U/L CK-MB (CK-2) CK-MB (CK-2) Rel Index Troponin I (0.01-0.034) ng/mL B-Natriuretic Peptide (<100) Total Protein (6.3-8.2) g/dL Albumin (3.5-5.0) g/dL Globulin (1.7-4.1) g/dL Albumin/Globulin Ratio (1.0-2.8) Amylase (30-110) U/L Lipase (23-300) U/L Urine RBC None seen (0-5/HPF) Urine WBC 0-1/hpf (0-5/HPF) Ur Squamous Epith Cells 0-1 /hpf (0-5/HPF) Urine Bacteria Occasional (0-1) (None) Ur Culture Indicated? Specimen cultured 06/27/19 06/27/19 06/27/19 Range/Units 15:10 15:10 18:00 WBC (4.5-11.0) X10^3/uL RBC (4.0-5.2) X10^6/uL Hgb (12.0-16.0) g/dL Hct (36-46) % MCV (80-100) fL MCH (26-34) PG MCHC (30-36) % RDW (11.6-14.8) % Plt Count (150-400) X10^3/uL Neut % (Auto) (50-75) % Lymph % (Auto) (25-40) % [place] % (Auto) (3-14) % Eos % (Auto) (2-4) % Baso % (Auto) (0-2) % Neut # (Auto) (3324-0459) /uL Lymph # (Auto) (1812-0488) /uL [place] # (Auto) (0-900) /uL Eos # (Auto) (0-450) /uL Baso # (Auto) (0-100) /uL PT (10.1-12.7) SECONDS INR (0.9-1.3) APTT (26.4-36.2) SECONDS Sodium 143 (137-145) mmol/L Potassium 4.4 (3.4-5.1) mmol/L Chloride 110 H (98-107) mmol/L Carbon Dioxide 28 (22-32) mmol/L BUN 12 (7-17) mg/dL Creatinine 0.70 (0.52-1.04) mg/dL Estimated GFR > 60.0 (>60) mL/min BUN/Creatinine Ratio 17.1 (6-22) Glucose 138 H (70-100) mg/dL Calcium 8.8 (8.4-10.2) mg/dL Total Bilirubin 0.4 (0.2-1.3) mg/dL AST 21 (14-36) IU/L ALT 17 (<35) IU/L Alkaline Phosphatase 72 (38-126) U/L Total Creatine Kinase 75 79 (30-135) U/L CK-MB (CK-2) TNP TNP CK-MB (CK-2) Rel Index TNP TNP Troponin I < 0.012 < 0.012 (0.01-0.034) ng/mL B-Natriuretic Peptide < 100 (<100) Total Protein 6.4 (6.3-8.2) g/dL Albumin 3.9 (3.5-5.0) g/dL Globulin 2.5 (1.7-4.1) g/dL Albumin/Globulin Ratio 1.6 (1.0-2.8) Amylase 66 (30-110) U/L Lipase 57 (23-300) U/L Urine RBC (0-5/HPF) Urine WBC (0-5/HPF) Ur Squamous Epith Cells (0-5/HPF) Urine Bacteria (None) Ur Culture Indicated? Point of Care Testing Glucose POC 158 Urine Dip Bedside Urine Glucose 250 mg/dl Bedside Urine Bilirubin - Negative Bedside Urine Ketone +/- 5 Urine Specific [place] 1.015 Bedside Urine Occult Blood - Negative Bedside Urine pH 6.0 Bedside Urine Protein - Negative Bedside Urine Urobilinogen - Negative Bedside Urine Nitrite - Negative Bedside Urine Leukocytes + 70 Esterase Discharge Plan Departure Patient Disposition: Home Clinical Impression: Nausea Abdominal pain Qualifiers: Abdominal location: epigastric Qualified Code(s): R10.13 - Epigastric pain Discharge Date/Time: 06/27/19 19:52 Instructions: Gastroesophageal Reflux Disease (Alternative Therapy), DI for Gastroesophageal Reflux Disease (GERD), DI for Abdominal Pain-Adult, DI for Nausea -- Adult, GERD Diet Activity Restrictions/Additional Instructions: I have sent 2 prescriptions to [facility] in [place]. One is for nausea, one is to help decrease the acid in your stomach. We checked your heart your kidney function etc and everything came back well. Please be careful attention to her diet, stress level etc Please follow up with primary care provider in the next few days. Please come back to the emergency department for any acute complaints. Prescriptions: New sucralfate [Carafate] 100 mg/mL suspension 10 ml PO QACHS 10 Days Qty: 400 RF: 0 ondansetron 4 mg tablet,disintegrating 4 mg PO Q6H PRN (Reason: nausea and vomiting) Qty: 20 RF: 0 No Action gabapentin 400 mg Capsule 400 mg PO TID RF: 0 acetaminophen [Acetaminophen Extra Strength] 500 mg Tablet 1,000 mg PO Q6H PRN (Reason: pain) RF: 0 Humulin N NPH U-100 Insulin 100 unit/mL Suspension 38 unit SUBCUT BID RF: 0 omeprazole 20 mg Capsule,Delayed Release(Dr/Ec) 20 mg PO DAILY RF: 0 nystatin 100,000 unit/gram Powder 1 applic TOPICAL BID RF: 0 celecoxib [Celebrex] 200 mg Capsule 200 mg PO BID PRN (Reason: pain) Qty: 60 RF: 0 docusate sodium 100 mg Capsule 100 mg PO BID PRN (Reason: constipation) Qty: 30 RF: 0 hydroxyzine pamoate 25 mg Capsule 25 mg PO Q4HR PRN (Reason: spasms) Qty: 20 RF: 0 tramadol 50 mg Tablet 50 mg PO Q4HR PRN (Reason: pain) Qty: 30 RF: 0 Referrals: Kala Guzman MD [Primary Care Provider] -
[2019-06-27] MEDS: ONDANSETRON 4 MG/2 ML INJ IV (15:06)
[2019-06-27] MEDS: SODIUM CHLORIDE 0.9% 1,000 ML 1000 ML IV (15:06)
[2019-06-27] MEDS: PANTOPRAZOLE 40 MG VIAL IV (15:06)
[2019-06-27 15:21] LABS: Add Manual Diff / Slide Review NO; Basophils Absolute Auto 100 /uL (0-100); Eosinophils Absolute Auto 100 /uL (0-450); Eosinophils Percent Auto 1.5 % (2-4); Hematocrit 42.7 % (36-46); Hemoglobin 14.5 g/dL (12.0-16.0); Lymphocytes Absolute Auto 2400 /uL (1100-4500); Mean Corpuscular HGB Conc 33.9 % (30-36); Mean Corpuscular Hemoglobin 28.5 PG (26-34); Monocytes Absolute Auto 400 /uL (0-900); Monocytes Percent Auto 5.3 % (3-14); Neutrophils Absolute Auto 4100 /uL (1500-7000); Neutrophils Percent Auto 58.2 % (50-75); Platelet Count 277 X10^3/uL (150-400); Red Blood Cell Count 5.09 X10^6/uL (4.0-5.2); Red Cell Distribution Width 13.8 % (11.6-14.8); White Blood Cell Count 7.1 X10^3/uL (4.5-11.0)
[2019-06-27 15:36] LABS: RBC Urine None Seen (0-5/HPF); Squamous Epithelial Cell Urine 0-1 /HPF (0-5/HPF); WBC Urine 0-1/HPF (0-5/HPF)
[2019-06-27 15:37] LABS: B Type Natriuretic Peptide < 100 (<100); INR 0.9 (0.9-1.3); Prothrombin Time 10.7 SECONDS (10.1-12.7)
[2019-06-27 15:37] LABS: Bacteria Urine Occasional (0-1); Culture Indicated Urine Specimen Cultured
[2019-06-27 15:39] LABS: PTT Partial Thromboplastin Tim 30 SECONDS (26.4-36.2)
[2019-06-27 16:00] VITALS: BP 148/63; PULSE 79; RESP 16; O2SAT 98
[2019-06-27 16:13] VITALS: BP 148/63; PULSE 77; O2SAT 98
[2019-06-27 16:37] LABS: Alanine Aminotransferase 17 IU/L (<35); Albumin 3.9 g/dL (3.5-5.0); Albumin Globulin Ratio 1.6 (1.0-2.8); Alkaline Phosphatase 72 U/L (38-126); Amylase 66 U/L (30-110); Aspartate Aminotransferase 21 IU/L (14-36); BUN Creatinine Ratio 17.1 (6-22); Bilirubin Total 0.4 mg/dL (0.2-1.3); Blood Urea Nitrogen 12 mg/dL (7-17); Calcium 8.8 mg/dL (8.4-10.2); Carbon Dioxide 28 mmol/L (22-32); Chloride 110 mmol/L (98-107); Creatine Kinase 75 U/L (30-135); Estimated Glomerular Filt Rate > 60.0 mL/min (>60); Globulin 2.5 g/dL (1.7-4.1); Glucose 138 mg/dL (70-100); HEMOLYSIS < 15 (0-50); Lipase 57 U/L (23-300); Potassium 4.4 mmol/L (3.4-5.1); Sodium 143 mmol/L (137-145); Total Protein 6.4 g/dL (6.3-8.2)
[2019-06-27 16:48] LABS: Troponin I < 0.012 ng/mL (0.01-0.034)
[2019-06-27 17:12] VITALS: BP 134/59; PULSE 84; RESP 16; O2SAT 98
[2019-06-27] MEDS: MAG HYDROX/ALUMINUM/SIMETH SUS 20 ML, LIDOCAINE VISCOUS 2% 15 ML PO (17:25)
[2019-06-27] MEDS: KETOROLAC 60 MG/2 ML VIAL 30 MG IV (17:26)
[2019-06-27 18:00] VITALS: BP 141/67; PULSE 76; RESP 16; O2SAT 100
[2019-06-27 18:25] LABS: Creatine Kinase 79 U/L (30-135)
[2019-06-27 18:38] LABS: Troponin I < 0.012 ng/mL (0.01-0.034)
[2019-06-27] MEDS: SUCRALFATE 1 GM/10 ML ORAL SUSP PO (19:40)
[2019-06-27] MEDS: ONDANSETRON 4 MG ODT PREPACK 1 BOTTLE MISC (19:41)
[2019-06-27 19:51] VITALS: BP 160/73; PULSE 70; RESP 16; O2SAT 96
--- NOTE | 2019-06-27 20:30 | PC.NURSE ---
patients wallet discovered by staff cleaning room after patient discharge. Patient contacted by phone and infromed she needs to contact the Nursing Title Manager to claim her belongings.
== END 2019-06-27 19:52 | disposition home or self-care (01) ==
PROVIDERS: Emergency Provider Nurse Practitioner Family; PCP Internal Medicine
DX: R10.13 Epigastric pain (principal); R11.0 Nausea; K21.9 Gastro-esophageal reflux disease without esophagitis
CPT/HCPCS: 36415; 80053; 81003; 81015; 82150; 82550; 82962; 83690; 83880; 84484; 85025; 85610; 85730; 87077; 87086; 87186; 93005; 96374; 96375; 99283; 99284; C9113; J1885; J2405

== ENCOUNTER → 2024-11-22 14:48 | Outpatient (CLI) | payer OTHER, SELFPAY ==
[2018-11-06 17:46] VITALS: BMI 41.7
--- NOTE | 2024-11-22 14:50 | DI.MRI.S_ITS ---
PROCEDURE: MR KNEE RT WO CON INDICATIONS: TEAR OF LATERAL MENISCUS RT KNEE TECHNIQUE: Noncontrast sagittal PD fast spin echo and T2 fast spin echo with fat saturation, sagittal 3-D FLASH with fat saturation; coronal T1 spin echo and PD fast spin echo with fat saturation, and axial PD fast spin echo with fat saturation through the knee. COMPARISON: [facility] [place], CR, XR KNEE 4+ VIEWS RIGHT, 11/05/2024, 13:30. FINDINGS: Image quality: Excellent. Menisci: In the medial meniscus, the posterior root is not definitely visualized, concerning for radial tear (10:18). Mild extrusion of the medial meniscus body. The lateral meniscus is unremarkable. Cruciate ligaments: The anterior and posterior cruciate ligaments appear intact. Medial structures: The medial collateral ligament appears intact. The posterior oblique ligament, semimembranosus tendon insertions, oblique popliteal ligament, and meniscocapsular junction appear intact. Visualized portions of the pes anserinus tendons appear normal. No abnormal bursal fluid. Lateral structures: The lateral collateral ligament, long and short heads of the biceps femoris tendon appear intact. The popliteus tendon appears normal; the popliteofibular ligament appears intact. The posterosuperior and anteroinferior popliteomeniscal fascicles appear intact. The arcuate and fabellofibular ligaments appear intact, on either side of the lateral inferior geniculate artery. Iliotibial band appears normal. Anterior structures: The quadriceps tendon is unremarkable. Mild tendinosis of the proximal patellar tendon. Superolateral Hoffa's fat pad edema, raising concern for patellar maltracking. Mild lateral tilt of the patella. The medial and lateral patellofemoral ligaments are intact. Bones and cartilage: Mild chondral thinning and chondral irregularity of the medial patellar facet, and the median ridge, with mild subchondral cystic changes. Cartilage of the trochlea is well maintained. The cartilage of the medial and lateral compartments are well maintained. No acute fracture. Joint space: Small knee effusion. Mild tendinosis distal semimembranosus. Trace popliteal cyst. Popliteal vasculature is unremarkable. No intra-articular body. IMPRESSION: 1. Nonvisualization of the posterior root of the medial meniscus, raising concern for radial tear. 2. Findings concerning for patellar maltracking. Mild, patellofemoral compartment predominant chondrosis. Dictated by: Nery Ness M.D. on 11/22/2024 at 15:57 Approved by: Nery Ness M.D. on 11/22/2024 at 16:07
== END ==
PROVIDERS: Referring Provider Orthopaedic Surgery Foot and Ankle Surgery; Visit Provider Orthopaedic Surgery Foot and Ankle Surgery
DX: S83.281A Other tear of lateral meniscus, current injury, right knee, initial encounter (principal); M22.41 Chondromalacia patellae, right knee; M25.461 Effusion, right knee; W19.XXXA Unspecified fall, initial encounter
CPT/HCPCS: 73721